=== PATIENT | female | born 1980 | race Caucasian/White ===

== ENCOUNTER 2017-03-24 20:52 | Emergency (ER) | payer OTHER ==
[~2017-03-24] VITALS: Ht 152.4 cm; Wt 68.0 kg
[~2017-03-24 20:52] MED LIST: ADVOCARE SUPPLEMENTS; AMITRIPTYLINE H50 MG PO; AMOXICILLIN500 MG PO; BACTRIM DS 8001 TAB PO; CIPROFLOXACIN500 MG PO; CYCLOBENZAPRINE5 M2 PO; ESCITALOPRAM OX10 MG PO; NAPROSYN500 M1 PO; NORCO 325 MG-51 TAB PO; NUVARING1 ICR VG; ORPHENADRINE C100 MG PO; PERCOCET 5-3251 EACH PO; PROPRANOLOL HYD60 MG PO; TRAMADOL HCL50 MG PO; ZOFRAN 4 MG TABL4 MG PO
[2017-03-24] MEDS ORDERED: AMITRIPTYLINE100 M2 PO (21:19)
[2017-03-24] MEDS ORDERED: PROPRANOLOL HCL80 M2 PO (21:19)
[2017-03-24] MEDS ORDERED: TRAMADOL HCL50 M1 PO (21:20)
[2017-03-24] MEDS ORDERED: DICLOFENAC SODI50 M3 PO (21:20)
--- NOTE | 2017-03-24 21:21 | ED GI/GU/ABDOMINAL COMPLAINT ---
History of Present Illness General Chief Complaint: Nausea, Vomiting, Diarrhea Stated Complaint: +N/V SINCE 2PM Source: patient Exam Limitations: no limitations Allergies Coded Allergies: scallops (Severe, HIVES, THROAT CLOSES 11/08/16) Uncoded Allergies: MONKFISH (UNKNOWN 11/08/16) Triage Note: PT TO ED FOR VOMITING SINCE 1400 TODAY. C/O 10/10 PAIN "ALL OVER" PT ACTIVELY DRY HEAVING AND VOMITING IN TRIAGE. ALSO C/O UPPER ABD PAIN AND DIARRHEA TODAY "DIARRHEA WAS EVERY HALF HOUR." PT UNABLE TO ANSWER FURTHER QUESTIONS IN TRIAGE DUE TO VOMITING AND "TOO WEAK" HR 140 IN TRIAGE. Triage Nurses Notes Reviewed? yes ? N Is pt currently ? No HPI: This patient is a 37-year-old female who presented to the emergency department today for onset of nausea, vomiting, and abdominal pain today. She reported that she was not feeling well yesterday and thought that her fibromyalgia was acting up. She reported that today within the day she started to feel nauseous. She has been throwing up every half an hour with no blood in the vomitus. She has been complaining of 8 out of 10, sharp, nonradiating, constant epigastric pain. She denied any fevers or chills. She denied any diarrhea or constipation. No urinary symptoms. No difficulty breathing or chest pain. (KELIN MCCORMICK,CINDY) Vital Signs & Intake/Output Vital Signs & Intake/Output Vital Signs Date Time Temp Pulse Resp B/P B/P Pulse O2 O2 Flow FiO2 Mean Ox Delivery Rate 03/24 2243 97.9 89 18 123/86 98 Room Air 03/24 2055 98.8 140 24 148/95 97 Room Air ED Intake and Output 03/25 0000 03/24 1200 Intake Total 1000 Output Total Balance 1000 Intake, IV 1000 Patient 150 lb Weight Weight Reported by Patient Measurement Method Reconcile Medications Amitriptyline HCl 100 MG TABLET 1 TAB PO QHS HEADACHES (Reported) Cyclobenzaprine HCl 5 MG TABLET 1 TAB PO QPMP SPASMS (Reported) Diclofenac Sodium 50 MG TABLET.DR 1 TAB PO QPM PAIN (Reported) Dicyclomine Hydrochloride (Bentyl) 10 MG CAPSULE 1 CAP PO TID PRN abdominal spasms Escitalopram Oxalate 10 MG TABLET 1 TAB PO DAILY DEPRESSION (Reported) Ondansetron (Zofran Odt) 4 MG TAB.RAPDIS 1 TAB SL TID PRN nausea and vomiting Propranolol HCl (Propranolol HCl ER) 80 MG CAP.SA.24H 1 CAP PO DAILY BP ( Reported) Tramadol HCl 50 MG TABLET 1 TAB PO BIDP PRN PAIN (Reported) (PETROS SOTO,KATE Robbins) Past History Travel History Traveled to [place] past 21 day No Medical History Any Pertinent Medical History? see below for history Neurological: FIBROMYALGIA EENT: NONE Cardiovascular: hypertension Respiratory: NONE Gastrointestinal: NONE Hepatic: NONE Renal: NONE Musculoskeletal: NONE Psychiatric: depression Endocrine: NONE Other Medical Hx: Viral meningitis Tetanus Vaccine: 04/01/14 Surgical History Surgical History: non-contributory Psychosocial History Who do you live with Family What is your primary language Jordanian Tobacco Use: Never used Family History Hx Contributory? No (CINDY NEVILLE PA-C) Review of Systems Review of Systems Constitutional: Reports: no symptoms. EENTM: Reports: no symptoms. Respiratory: Reports: no symptoms. Cardiovascular: Reports: no symptoms. GI: Reports: see HPI. Genitourinary: Reports: no symptoms. Musculoskeletal: Reports: no symptoms. Skin: Reports: no symptoms. Neurological/Psychological: Reports: no symptoms. All Other Systems: Reviewed and Negative (CINDY NEVILLE PA-C) Physical Exam Physical Exam Gastrointestinal: normal bowel sounds, soft, no organomegaly, TENDERNESS TO PALPATION IN THE EPIGASTRIC REGION WITH NO REBOUND OR GUARDING. nONDISTENDED Comments: Well-developed well-nourished person in mild distress HEENT: Normal EENT exam, head normocephalic, moist mucous membranes Neck: Supple Back: Normal inspection Cardiovascular: Regular rate and rhythm with no murmurs, rubs, or gallops Respiratory: No respiratory distress. Breath sounds clear to auscultation bilaterally Extremity: Normal and equal pulses Neuro: Alert oriented x3, motor sensory normal, cranial nerves II through XII grossly intact. Skin: No appreciable rash on exposed skin, skin is warm and dry. Psych: Mood and affect is normal, memory and judgment is normal. Core Measures ACS in differential dx? No Severe Sepsis Present: No Septic Shock Present: No (CINDY NEVILLE PA-C) Progress Differential Diagnosis: AMI, appendicitis, biliary colic, bowel obstruction, colon cancer, cholecystitis, diverticulitis, ectopic , endometritis, gastritis, hepatitis, hemorrhoids, ischemic bowel, intrauterine , kidney stone, ovarian cyst, ovarian torsion, pancreatitis, PID/cervicitis, PUD/ GERD, perforated viscous, threatened AB, UTI/pyelo, VIRAL SYNDROME Initial ED EKG: none Comments: 03/24/2017 10:00:27 PM: As above the patient's bedside for reevaluation and to update her on her labs. White blood cell count 20.2. Patient reported that Toradol did not help her pain, but Zofran relieved her nausea. The patient is refusing a CT scan at this time. She reported, "I would just like to control my symptoms." 03/24/2017 10:32:04 PM: I was at the patient's bedside for reevaluation. She reported that she is feeling better. The pain is now down to a 4 out of 5. She is not having any nausea. Patient is still refusing CT scan. Stable for discharge home. (KELIN MCCORMICK,CINDY) Plan of Care: Orders Procedure Date/time Status RAPID VIRAL INFLUENZA A 03/24 2145 Complete URINE 03/24 2112 Complete URINALYSIS 03/24 2112 Complete LIPASE 03/24 2112 Complete HUMAN BETA HCG SCREEN 03/24 2112 Complete DIRECT BILIRUBIN 03/24 2112 Complete COMPREHENSIVE METABOLIC PANEL 03/24 2112 Complete CBC WITHOUT DIFFERENTIAL 03/24 2112 Complete AMYLASE 03/24 2112 Complete Laboratory Tests 03/24/172211: Urine Color YEL, Urine Clarity CLEAR, Urine pH 7.5, Ur Specific [place] 1.010, Urine Protein 30 H, Urine Ketones 15 H, Urine Nitrite NEG, Urine Bilirubin NEG , Urine Urobilinogen 1.0, Ur Leukocyte Esterase NEG, Ur Microscopic SEDIMENT EXAMINED, Urine RBC RARE, Urine WBC 1-3 H, Ur Epithelial Cells FEW, Urine Bacteria MANY H, Urine Mucus MOD H, Urine Hemoglobin NEG, Urine Glucose NEG, Urine Test NEGATIVE 03/24/172114: Anion Gap 20 H, Estimated GFR > 60, BUN/Creatinine Ratio 14.0, Glucose 153 H, Calcium 9.9, Total Bilirubin 0.9, Direct Bilirubin 0.2, AST 41 H, ALT 48, Alkaline Phosphatase 112, Total Protein 8.7 H, Albumin 5.0, Globulin 3.7, Albumin/Globulin Ratio 1.4, Amylase 55, Lipase 59, Total Beta HCG NEGATIVE, CBC w Diff NO MAN DIFF REQ, RBC 5.06, MCV 83.9, MCH 28.2, RDW 14.6 H, MPV 8.7, Gran % 92.3 H, Lymphocytes % 3.5 L, Monocytes % 3.0, Eosinophils % 0.9, Basophils % 0.3, Absolute Granulocytes 18.7 H, Absolute Lymphocytes 0.7 L, Absolute Monocytes 0.6, Absolute Eosinophils 0.2, Absolute Basophils 0.1, PUBS MCHC 33.6 Microbiology 03/24 2155 NASOPHARYN: Influenza Virus A & B Rapid Smear - COMP Departure Departure Disposition: HOME OR SELF CARE Condition: Stable Clinical Impression Primary Impression: Viral syndrome Referrals: YULIYA MERCADO (PCP/Family) Additional Instructions: Take medication as prescribed for your symptoms. Please follow-up with your primary care physician and return to the emergency department for any worsening symptoms or concerns. Departure Forms: Customer Survey General Discharge Information Prescriptions: Current Visit Scripts Dicyclomine Hydrochloride (Bentyl) 1 CAP PO TID PRN abdominal spasms #12 CAP Ondansetron (Zofran Odt) 1 TAB SL TID PRN nausea and vomiting #10 TAB (CINDY NEVILLE PA-C) PA/ACQUISITION ASSOCIATE Co-Sign Statement Statement: ED Attending supervision documentation- [] I saw and evaluated the patient. I have also reviewed all the pertinent lab results and diagnostic results. I agree with the findings and the plan of care as documented in the PA's/ACQUISITION ASSOCIATE's documentation. [x] I have reviewed the ED Record and agree with the PA's/ACQUISITION ASSOCIATE's documentation. [] Additions or exceptions (if any) to the PAs/ACQUISITION ASSOCIATE's note and plan are summarized below: [] (PETROS SOTO,KATE Robbins)
[2017-03-24 21:42] LABS: ABSOLUTE BASOPHIL COUNT 0.1 /CUMM (0.0-0.2); ABSOLUTE EOSINOPHIL COUNT 0.2 /CUMM (0.0-0.7); ABSOLUTE GRANULOCYTE CT 18.7 /CUMM (1.4-6.5); ABSOLUTE LYMPH COUNT 0.7 /CUMM (1.2-3.4); ABSOLUTE MONOCYTE COUNT 0.6 /CUMM (0.10-0.60); BASOPHIL % 0.3 % (0.0-2.0); EOSINOPHIL % 0.9 % (0-5); HEMATOCRIT 42.5 % (37-47); MEAN CORPUSCULAR HGB 28.2 PG (27.0-31.0); MEAN CORPUSCULAR HGB CONC 33.6 G/DL (33.0-37.0); MEAN CORPUSCULAR VOLUME 83.9 FL (81.0-99.0); MEAN PLATELET VOLUME 8.7 FL (7.4-10.4); PLATELET COUNT 357 /CUMM (130-400); RBC DISTRIBUTION WIDTH 14.6 % (11.5-14.5); RED BLOOD CELL CT 5.06 /CUMM (4.20-5.40); WHITE BLOOD CELL COUNT 20.2 /CUMM (4.8-10.8)
[2017-03-24 21:43] LABS: GRANULOCYTE % 92.3 % (42.2-75.2)
[2017-03-24] MEDS ORDERED: ZOFRAN ODT4 M1 SL (22:33)
[2017-03-24] MEDS ORDERED: BENTYL10 M1 PO (22:33)
[2017-03-24 22:43] VITALS: BP 123/86
== END 2017-03-24 22:44 ==
LOC: ERH 20:52
PROVIDERS: Physician Assistant
DX: B34.9 Viral infection, unspecified (principal); R10.13 Epigastric pain
CPT/HCPCS: 81001; 81025; 87804; 87804-59; 96374; 96375; J1885; J2405

== ENCOUNTER 2018-01-14 17:51 | Emergency (ER) | payer SELFPAY ==
[~2018-01-14] VITALS: Ht 152.4 cm; Wt 70.8 kg
[~2018-01-14 17:51] MED LIST changes: +AMITRIPTYLINE100 M2 PO; +BENTYL10 M1 PO; +DICLOFENAC SODI50 M3 PO; +IMODIUM A-D2 M1 PO; +LEVSIN-SL0.125 MG SL; +PROPRANOLOL HCL80 M2 PO; +TRAMADOL HCL50 M1 PO; +ZOFRAN ODT4 M1 SL
--- NOTE | 2018-01-14 20:17 | ED HEADACHE COMPLAINT ---
History of Present Illness General Chief Complaint: Headache Stated Complaint: TESTED FLU + X 2DAYS AGO.. HEADACHE Source: patient, family, old records Exam Limitations: no limitations Vital Signs & Intake/Output Vital Signs & Intake/Output Vital Signs Date Time Temp Pulse Resp B/P B/P Pulse O2 O2 Flow FiO2 Mean Ox Delivery Rate 01/143 96 18 145/77 99 Room Air 01/14 1830 97.4 105 18 170/89 100 Room Air Room Air Allergies Coded Allergies: scallops (Severe, HIVES, THROAT CLOSES 11/08/16) Uncoded Allergies: MONKFISH (UNKNOWN 11/08/16) Reconcile Medications Amitriptyline HCl 100 MG TABLET 1 TAB PO QHS HEADACHES (Reported) Cyclobenzaprine HCl 5 MG TABLET 1 TAB PO QPMP SPASMS (Reported) Diclofenac Sodium 50 MG TABLET.DR 1 TAB PO QPM PAIN (Reported) Dicyclomine Hydrochloride (Bentyl) 10 MG CAPSULE 1 CAP PO TID PRN abdominal spasms Escitalopram Oxalate 10 MG TABLET 1 TAB PO DAILY DEPRESSION (Reported) Hyoscyamine Sulfate (Levsin-Sl) 0.125 MG TAB.SUBL 1-2 TAB SL Q4P PRN abdominal cramps Loperamide HCl (Imodium A-D) 2 MG TABLET 0 PO SEE ADMIN CRITERIA PRN diarrhea 1 tab after each loose stool up to 7 per day Ondansetron (Zofran Odt) 4 MG TAB.RAPDIS 1 TAB SL TID PRN nausea Ondansetron (Zofran Odt) 4 MG TAB.RAPDIS 1 TAB SL TID PRN nausea and vomiting Propranolol HCl (Propranolol HCl ER) 80 MG CAP.SA.24H 1 CAP PO DAILY BP ( Reported) Tramadol HCl 50 MG TABLET 1 TAB PO BIDP PRN PAIN (Reported) Triage Note: TRIAGE: 37 Y/O FEMALE PRESENTS C/O 08/29 MIGRAINE HEADACHE X2 DAYS. REPORTS CAME IN ON MONDAY AND THE WAIT WAS 5 HOURS, DID NOT WAIT. [facility], +FLU - HAS BEEN ON TAMIFLU. AFEBRILE IN TRIAGE. Triage Nurses Notes Reviewed? yes : No Patient currently breastfeeds: No HPI: Patient was recently diagnosed with influenza and has been on Tamiflu. Patient states that since yesterday she has had a tightness, burning sensation in the back of her neck that radiates up the back of her head and then radiates around to both both years. The pain and goes to behind both eyes. Positive photophobia. There are no aggravating or mitigating factors. The pain is burning and throbbing in nature. The pain worsens with light as well as movement of her neck. Positive fever, positive anorexia. The pain is 10 out of 10. Patient has been unable to take her cyclobenzaprine secondary to the nausea. Past History Travel History Traveled to [place] past 21 day No Medical History Any Pertinent Medical History? see below for history Neurological: FIBROMYALGIA EENT: NONE Cardiovascular: hypertension Respiratory: NONE Gastrointestinal: NONE Hepatic: NONE Renal: NONE Musculoskeletal: fibromyalgia Psychiatric: depression Endocrine: NONE Other Medical Hx: Viral meningitis Tetanus Vaccine: 04/01/14 Surgical History Surgical History: non-contributory Psychosocial History Who do you live with Family What is your primary language Montserratian Tobacco Use: Never used ETOH Use: occasional use Illicit Drug Use: denies illicit drug use Family History Hx Contributory? No Review of Systems Review of Systems Constitutional: Reports: see HPI, chills. Eyes: Reports: see HPI, photophobia. Ears, Nose, Throat, Mouth: Reports: no symptoms. Respiratory: Reports: no symptoms. Cardiovascular: Reports: no symptoms. Gastrointestinal/Abdominal: Reports: see HPI, nausea. Genitourinary: Reports: no symptoms. Musculoskeletal: Reports: see HPI, neck pain. Skin: Reports: no symptoms. Neurological/Psychological: Reports: see HPI, headache. Hematologic/Endocrine: Reports: no symptoms. Endocrine: Reports: no symptoms. Immunologic/Allergic: Reports: no symptoms. All Other Systems: Reviewed and Negative Physical Exam Physical Exam General Appearance: well developed/nourished, alert, awake, anxious, moderate distress Head: atraumatic, normal appearance Eyes: Bilateral: PERRL, EOMI. Ears, Nose, Throat: normal pharynx, normal ENT inspection, hearing grossly normal Neck: normal inspection, supple, tender lateral Respiratory: normal breath sounds, chest non-tender, no respiratory distress, lungs clear Cardiovascular: regular rate/rhythm, normal peripheral pulses Gastrointestinal: normal bowel sounds, soft, non-tender, no organomegaly Back: normal inspection, normal range of motion, muscle spasm, no vertebral tenderness Extremities: normal inspection, normal capillary refill, normal range of motion, no edema Psychiatric: awake, alert, oriented x 3 Cranial Nerves: normal hearing, normal speech, PERRL Coordination/Gait: normal gait Motor/Sensory: no motor/sensory deficits Skin: intact, normal color, warm/dry Core Measures Sepsis Present: No Sepsis Focused Exam Completed? No Progress Differential Diagnosis: meningitis, tension CROCKETT, viral cephalgia Plan of Care: Current Medications Sig/Myra Start time Last Medication Dose Stop Time Status Admin Sodium Chloride 1,000 ML BOLUS ONE 01/14 2030 AC 01/14 (Normal Saline 0.9%) 01/14 Departure Departure Disposition: HOME OR SELF CARE Condition: Stable Clinical Impression Primary Impression: Tension headache Secondary Impressions: Influenza Referrals: Nasrin Bradford APRN (PCP/Family) Additional Instructions: RETURN IF SYMPTOMS WORSEN OR FOR ANY CONCERNS Departure Forms: Customer Survey General Discharge Information
[2018-01-14 21:23] VITALS: BP 145/77
== END 2018-01-14 23:02 ==
LOC: ERH 17:51
DX: J11.1 Influenza due to unidentified influenza virus with other respiratory manifestations (principal); G44.209 Tension-type headache, unspecified, not intractable
CPT/HCPCS: 96361; 96374; 96375; J0131; J1200; J2405

== ENCOUNTER 2018-02-19 09:44 | Observation (INO) | payer OTHER ==
[~2018-02-19] VITALS: Ht 152.4 cm; Wt 84.4 kg
--- NOTE | 2018-02-19 10:07 | ED CARDIAC/CP/PALPITATIONS ---
History of Present Illness General Chief Complaint: General Adult Stated Complaint: CROCKETT ELAVATED BP SENT FROM [facility] Source: patient Exam Limitations: no limitations Vital Signs & Intake/Output Vital Signs & Intake/Output Vital Signs Date Time Temp Pulse Resp B/P B/P Pulse O2 O2 Flow FiO2 Mean Ox Delivery Rate 02/19 1356 98.0 107 18 132/84 100 Room Air 02/19 1332 98.1 110 18 140/90 99 Room Air 02/19 1331 98.1 110 18 140/90 02/19 1147 98.3 113 17 130/86 99 Room Air 02/19 1117 99 Room Air 02/19 1049 160/100 02/19 1004 97.3 114 18 185/124 99 Room Air Allergies Coded Allergies: scallops (Severe, HIVES, THROAT CLOSES 11/08/16) Uncoded Allergies: MONKFISH (UNKNOWN 11/08/16) Reconcile Medications No Known Home Medications Triage Note: PT PRESENTS TO THE ER SENT IN BY THE URGENT CARE. PT IS C/O CHEST PAIN /10, EX SOB. PT STATES IF SHE WALKS UPSTAIRS THE CP IS 10/10. PT STATES SHE HAD THE FLU END OF DEC AND HAS NOT BEEN BETTER. PT STATES THE LAST 3 WEEKS SHE HAS BEEN GETTING WORSE. URGENT CARE STATES PT BP IS ELEVATED. PT STATES THAT HER RIGHT EYE SHE IS HAVING VISION PROBLEMS. Triage Nurses Notes Reviewed? yes Onset: Gradual Duration: getting worse Quality/Severity: pressure, sharp Location: substernal Radiation: back : No Patient currently breastfeeds: No HPI: Patient is a 38-year-old female with past medical history of migraine headaches and fibromyalgia who states that approximately 2 months ago she had her insurance discontinued where she has been not taking her Lexapro amitriptyline cyclobenzaprine and diclofenac and propranolol Patient states that at the end of December she had influenza and was given Tamiflu which improved her symptoms however patient began working out at a gym approximately 10 days ago and since has been complaining of worsening dyspnea on exertion shortness of breath worsening substernal chest heaviness and pressure with radiation to her back intermittent nausea and dizziness. Patient has a family member who is a nurse and has began evaluating her blood pressure noted to be excessively high. Patient was evaluated today at urgent care facility due to 4-10 chest heaviness and headache complaints with the blood pressure was excessively high with patient was advised to present to the emergency room. Patient denies any illicit drug use smoking tobacco or alcohol use, denies any family history significant for cardiac disease. Denies any fever chills neck pain sore throat DENIES ANY HX OF OCP USE, (Jarek Zimmerman) Past History Travel History Traveled to [place] past 21 day No Medical History Any Pertinent Medical History? see below for history Neurological: FIBROMYALGIA EENT: NONE Cardiovascular: hypertension Respiratory: NONE Gastrointestinal: NONE Hepatic: NONE Renal: NONE Musculoskeletal: fibromyalgia Psychiatric: depression Endocrine: NONE Other Medical Hx: Viral meningitis Tetanus Vaccine: 04/01/14 Surgical History Surgical History: non-contributory Psychosocial History Who do you live with Family What is your primary language Czech Tobacco Use: Never used Family History Hx Contributory? No (Jarek Zimmerman) Review of Systems Review of Systems Constitutional: Reports: see HPI, malaise. EENTM: Reports: see HPI, blurred vision. Respiratory: Reports: see HPI, short of breath. Cardiovascular: Reports: see HPI, chest pain. GI: Reports: see HPI, nausea. Genitourinary: Reports: no symptoms. Musculoskeletal: Reports: no symptoms. Skin: Reports: no symptoms. Neurological/Psychological: Reports: see HPI, headache. Hematologic/Endocrine: Reports: no symptoms. Immunologic/Allergic: Reports: no symptoms. All Other Systems: Reviewed and Negative (Jarek Zimmerman) Physical Exam Physical Exam General Appearance: no apparent distress, alert, comfortable Head: atraumatic Eyes: Bilateral: normal appearance, PERRL. Ears, Nose, Throat: normal pharynx, normal ENT inspection Neck: normal inspection Respiratory: normal breath sounds, chest non-tender, no respiratory distress Cardiovascular: tachycardia Peripheral Pulses: 2+ radial (R) Gastrointestinal: normal bowel sounds, soft, non-tender Extremities: normal inspection, normal capillary refill, normal range of motion Neurologic/Psych: no motor/sensory deficits, awake, alert Skin: intact, normal color Core Measures ACS in differential dx? Yes CVA/TIA Diagnosis No Sepsis Present: No Sepsis Focused Exam Completed? No (Jarek Zimmerman) Progress Differential Diagnosis: AMI, aortic dissection, atrial fibrillation, cholecystitis, CHF/pulm edema, costochondritis, hyperkalemia, hypovolemia, hyperthyroid, hyperventilation, intracranial hemorrhage, musculoskeletal pain, myocarditis, pancreatitis, pericarditis, pneumonia, pneumothorax, PSVT, pulmonary embolism, PUD/GERD, PVCs/PACs, respiratory failure, sepsis, unstable angina, V-fib/V-Tach, WPW syndrome Plan of Care: Orders Procedure Date/time Status Regular Diet 02/19 D Active TROPONIN LEVEL 02/19 1530 Active EKG 02/19 1530 Active OXYGEN SETUP (GEN) 02/19 1315 Active Saline Lock 02/[address] in observation 02/19 1315 Active Vital Signs 02/19 1315 Active Activity/Ambulation 02/19 1315 Active Code Status 02/19 1315 Active Patient Data 02/19 1309 Active Intake & Output 02/19 1115 Active Telemetry/Bead Maker 02/19 1007 Active URINE 02/19 1007 Complete THYROID STIMULATING HORMONE 02/19 1007 Complete TROPONIN LEVEL 02/19 1007 Complete MAGNESIUM 02/19 1007 Complete HUMAN BETA HCG SCREEN 02/19 1007 Complete FREE T4 02/19 1007 Complete D-DIMER 02/19 1007 Complete COMPREHENSIVE METABOLIC PANEL 02/19 1007 Complete CBC WITHOUT DIFFERENTIAL 02/19 1007 Complete EKG 02/19 0959 Active Current Medications Sig/Myra Start time Last Medication Dose Stop Time Status Admin Labetalol HCl 10 MG ONCE ONE 02/19 1100 CAN (Trandate) 02/19 1101 Acetaminophen 1,000 MG ONCE ONE 02/19 1030 CAN (Ofirmev) 02/19 1044 N/A 1 UNIT (No Carrier) Sodium Chloride 1,000 ML BOLUS ONE 02/19 1030 CAN (Normal Saline 0.9%) 02/19 1129 Laboratory Tests 02/19/18 1015: Anion Gap 13, Estimated GFR > 60, BUN/Creatinine Ratio 18.6, Glucose 96, Calcium 9.9, Magnesium 1.7, Total Bilirubin 0.6, AST 38 H, ALT 57 H, Alkaline Phosphatase 106, Troponin I < 0.01, Total Protein 8.2, Albumin 4.5, Globulin 3.7 , Albumin/Globulin Ratio 1.2, TSH 1.970, Free T4 1.15, Total Beta HCG NEGATIVE, D-Dimer High Sensitivty < 200, CBC w Diff NO MAN DIFF REQ, RBC 4.83, MCV 75.5 L , MCH 24.0 L, MCHC 31.7 L, RDW 15.8 H, MPV 8.0, Gran % 61.1, Lymphocytes % 27.6, Monocytes % 7.0, Eosinophils % 3.8, Basophils % 0.5, Absolute Granulocytes 5.1, Absolute Lymphocytes 2.3, Absolute Monocytes 0.6, Absolute Eosinophils 0.3, Absolute Basophils 0, Urine Test NEGATIVE Differential diagnosis included meningitis intracranial hemorrhage migraine labyrinthitis Patient initially was given nitroglycerin and aspirin due to the presentation of substernal chest pressure, initial EKG was unremarkable concerns of ST elevation blood pressure was noted to be elevated and was nitroglycerin was administered with no relief of symptoms Another dose of nitroglycerin will be administered blood pressure will be rechecked and possibly labetalol will be administered if no improvement. After nitroglycerin was administered patient did have improvement of chest pain in which she describes the sharp pain is gone however is still having chest pressure symptoms and blood pressure has improved, headache still exist patient was given Imitrex and Fioricet. Discuss ongoing chest pain with Dr. Choudhary who advised patient to be administered IV labetalol and will consult and is aware Discussed patient with case management who advised patient to be placed in telemetry observation discussed plan of observation with patient and was aware and agrees Diagnostic Imaging: Viewed by Me: Radiology Read. Radiology Impression: no acute abnormality, no fracture CXR Impression: no acute abnormality Initial ED EK BPM,LVH Comments: PATIENT: GENEVIEVE ALEXIS PRESENT AGE: 38 PATIENT ACCOUNT NO: [id number] : 79 LOCATION: [facility] ORDERING PHYSICIAN: Jarek MAI SERVICE DATE: 02/19/18 EXAM TYPE: RAD - XRY-PORTABLE CHEST XRAY EXAMINATION: XR PORTABLE CHEST CLINICAL INFORMATION: Chest pain COMPARISON: CT chest dated 10/30/2014 TECHNIQUE: Portable frontal view of the chest was obtained. FINDINGS: No significant abnormality is noted involving the heart, lungs, mediastinum, bony thorax or soft tissues. IMPRESSION: No acute pulmonary disease. DICTATED BY: Michael Oneill MD DATE/TIME DICTATED:02/19/181152 SALES STRATEGY MANAGER:TATIANA (Albert MAI,Jarek) Departure Departure Disposition: STILL A PATIENT Condition: Stable Clinical Impression Primary Impression: Hypertensive urgency Secondary Impressions: Chest pain, Migraine Referrals: Nasrin Bradford APRN (PCP/Family) Departure Forms: Customer Survey General Discharge Information Prescriptions: Current Visit Scripts No Known Home Medications Observation Note Spoke With: Chester SOTO,Christie Physician Advisor Notified: SHRADDHA BENTON DO Place Patient In: Non-ED OBS Care Area Rationale for Observation: My rational for observation is as follows [patient requires observation placement for ongoing chest pain hypertensive urgency and headaches, patient requires cardiology consultation antihypertensive medication nitroglycerin repeat labs repeat EKG and troponin]. (Jarek Zimmerman) PA/BABY COUNSELOR Co-Sign Statement Statement: ED Attending supervision documentation- I saw and evaluated the patient. I have also reviewed all the pertinent lab results and diagnostic results. I agree with the findings and the plan of care as documented in the PA's/BABY COUNSELOR's documentation. CP with exertion, HTN [] I have reviewed the ED Record and agree with the PA's/BABY COUNSELOR's documentation. [] Additions or exceptions (if any) to the PAs/BABY COUNSELOR's note and plan are summarized below: [] (Moise SOTO,[place]) Critical Care Note Critical Care Note Critical Care Time: 30-74 min (Jarek Zimmerman)
[2018-02-19 10:34] LABS: ABSOLUTE BASOPHIL COUNT 0 /CUMM (0.0-0.2); ABSOLUTE EOSINOPHIL COUNT 0.3 /CUMM (0.0-0.7); ABSOLUTE GRANULOCYTE CT 5.1 /CUMM (1.4-6.5); ABSOLUTE LYMPH COUNT 2.3 /CUMM (1.2-3.4); ABSOLUTE MONOCYTE COUNT 0.6 /CUMM (0.10-0.60); BASOPHIL % 0.5 % (0.0-2.0); EOSINOPHIL % 3.8 % (0-5); GRANULOCYTE % 61.1 % (42.2-75.2); HEMATOCRIT 36.5 % (37-47); MEAN CORPUSCULAR HGB CONC 31.7 G/DL (33.0-37.0); MEAN CORPUSCULAR VOLUME 75.5 FL (81.0-99.0); PLATELET COUNT 419 /CUMM (130-400); RBC DISTRIBUTION WIDTH 15.8 % (11.5-14.5); RED BLOOD CELL CT 4.83 /CUMM (4.20-5.40); WHITE BLOOD CELL COUNT 8.4 /CUMM (4.8-10.8)
--- NOTE | 2018-02-19 11:57 | RADIOLOGY REPORT ---
EXAMINATION: XR PORTABLE CHEST CLINICAL INFORMATION: Chest pain COMPARISON: CT chest dated 10/30/2014 TECHNIQUE: Portable frontal view of the chest was obtained. FINDINGS: No significant abnormality is noted involving the heart, lungs, mediastinum, bony thorax or soft tissues. IMPRESSION: No acute pulmonary disease.
--- NOTE | 2018-02-19 13:39 | History & Physical ---
[place] 02/19/18 1325: General Information and HPI MD Statement: I have seen and personally examined GENEVIEVE ALEXIS and documented this H&P. The patient is a 38 year old F who presented with a patient stated chief complaint of chest pain and elevated blood pressure []. Source of Information: patient, old records Exam Limitations: no limitations History of Present Illness: 38 YO F non smoker with PMH of HTN, fibromyalgia, migraine headache and depression was sent to ED from urgent care clinic for evaluation of chest pain and elevated blood pressure. Patient reported that she was in her usual state of health 2-3 weeks back when he started noticed having central chest pain, on exertion, 10/10, radiating to back, associated with palpitation, sweating, nausea and relieved with rest. Patient reported that she is taking Tylenol or ibuprofen [id number] for this pain. Patient also reported that she had flulike symptoms one month back, was treated with tamiflu and since then she is having pressure-like symptoms in her chest but it's not related to breathing. She reported that sometimes she has difficulty breathing especially on exertion. She reported that she is not able to take one flight of stairs without exertion. Patient also reported having blurry vision but it's going on for a long time. She also reported having headaches intermittently and at school be by taking pain medications. Patient denied shortness breath at rest, trauma to chest, sick contacts, vomiting, hematemesis, hemoptysis, diarrhea, constipation, abdominal pain, loss of consciousness, numbness, tingling, weakness in any part of her body and dysuria. Patient is seen her Primary care physician regularly and she is also seeing Dr. Garcia for fibromyalgia. Patient reported she is not able to take her medications including propranolol, flexril and NSAIDs for last couple of weeks due to her insurance problem. Patient also reported that due to blurry vision she is not able to drive. Last time patient was admitted in [facility] in 2010 with chief complaint of nausea vomiting and headache with photophobia and neck stiffness and she was treated for aseptic/viral meningitis. ED course: Vitals: Temperature 97.3, pulse 114, respiratory rate 18, blood pressure 185/124 , oxygen saturation 99% on room air. Labs: WBC count 8.4, hemoglobin 11.6, hematocrit 36.5,. patelet count 419, sodium 141, potassium 4.1, BUN 13, creatinine 0.7, BUN/creatinine ratio 15.6, glucose 96, calcium 9.9, magnesium 1.7, AST 38, ALT 57, alkaline phosphatase 106 , troponin less than 0.01, TSH 1.970, free T4 1 0.15, beta-hCG negative, d-dimer less than 200 Patient received nitroglycerin and aspirin in ED the patient also received one push of 10 mg labetalol. Allergies/Medications Allergies: Coded Allergies: scallops (Severe, HIVES, THROAT CLOSES 11/08/16) Uncoded Allergies: MONKFISH (UNKNOWN 11/08/16) Home Med list No Known Home Medications Past History Travel History Traveled to [place] past 21 day No Medical History Neurological: FIBROMYALGIA EENT: NONE Cardiovascular: hypertension Respiratory: NONE Gastrointestinal: NONE Hepatic: NONE Renal: NONE Musculoskeletal: fibromyalgia Psychiatric: depression Endocrine: NONE Other Medical Hx: Viral meningitis Tetanus Vaccine: 04/01/14 Surgical History Surgical History: non-contributory Review of Systems Review of Systems Constitutional: Reports: no symptoms. EENTM: Reports: no symptoms. Cardiovascular: Reports: chest pain, palpitations. Respiratory: Reports: short of breath. GI: Reports: no symptoms. Genitourinary: Reports: no symptoms. Musculoskeletal: Reports: see HPI. Skin: Reports: no symptoms. Neurological/Psychological: Reports: no symptoms. Exam & Diagnostic Data Last 24 Hrs of Vital Signs/I&O Vital Signs Date Time Temp Pulse Resp B/P B/P Pulse O2 O2 Flow FiO2 Mean Ox Delivery Rate 02/19 1503 98.0 98 18 144/90 99 Room Air 02/19 1356 98.0 107 18 132/84 100 Room Air 02/19 1332 98.1 110 18 140/90 99 Room Air 02/19 1331 98.1 110 18 140/90 02/19 1147 98.3 113 17 130/86 99 Room Air 02/19 1117 99 Room Air 02/19 1049 160/100 02/19 1004 97.3 114 18 185/124 99 Room Air Intake & Output 02/19 1600 /02 0800 02/19 0000 Intake Total 270 Output Total 1 Balance 269 Intake, IV 150 Intake, Oral 120 Output, Urine 1 Patient 165 lb Weight Weight Reported by Patient Measurement Method Physical Exam General Appearance Alert, Oriented X3, Cooperative, No Acute Distress Skin No Rashes Skin Temp/Moisture Exam: Warm/Dry Sepsis Skin Exam (color): Normal for Ethnicity HEENT Atraumatic, PERRLA, EOMI Neck Supple Cardiovascular Normal S1, Normal S2 Lungs Clear to Auscultation Abdomen Soft, No Tenderness Neurological Normal Speech, Strength at 5/5 X4 Ext, Normal Tone, Sensation Intact Extremities No Edema Last 24 Hrs of Labs/Danny: Laboratory Tests 02/19/18 1945: Urine Color Pending, Urine Clarity Pending, Urine pH Pending, Ur Specific [place] Pending, Urine Protein Pending, Urine Ketones Pending, Urine Nitrite Pending, Urine Bilirubin Pending, Urine Urobilinogen Pending, Ur Leukocyte Esterase Pending, Ur Microscopic Pending, Urine Hemoglobin Pending, Urine Glucose Pending 02/19/18 1750: Troponin I < 0.01 02/19/18 1015: Anion Gap 13, Estimated GFR > 60, BUN/Creatinine Ratio 18.6, Glucose 96, Calcium 9.9, Magnesium 1.7, Total Bilirubin 0.6, AST 38 H, ALT 57 H, Alkaline Phosphatase 106, Troponin I < 0.01, Total Protein 8.2, Albumin 4.5, Globulin 3.7 , Albumin/Globulin Ratio 1.2, TSH 1.970, Free T4 1.15, Total Beta HCG NEGATIVE, D-Dimer High Sensitivty < 200, CBC w Diff NO MAN DIFF REQ, RBC 4.83, MCV 75.5 L , MCH 24.0 L, MCHC 31.7 L, RDW 15.8 H, MPV 8.0, Gran % 61.1, Lymphocytes % 27.6, Monocytes % 7.0, Eosinophils % 3.8, Basophils % 0.5, Absolute Granulocytes 5.1, Absolute Lymphocytes 2.3, Absolute Monocytes 0.6, Absolute Eosinophils 0.3, Absolute Basophils 0, Urine Test NEGATIVE Assessment/Plan Assessment: 38 YO F non smoker with PMH of HTN, fibromyalgia, migraine headache and depression was sent to ED from urgent care clinic for evaluation of chest pain and elevated blood pressure. We'll keep the patient under observation to rule out any ischemic cardiac injury. Chest pain: -Considering her symptoms and looks atypical chest pain. We will keep the patient on telemetry floor and do serial EKG and troponins to rule out any ischemic cardiac injury. -Cardiology consult -Echocardiogram in a.m. Hypertensive urgency: -Considering patient recently stopped taking propranolol abruptly that can cause her tachycardia and hypertension. -We will start amlodipine -Renal artery ultrasound to rule out renal artery fibromuscular dysplasia. -Urine toxicology -We will check UA History of fibromyalgia; -continue her home medication History of migraine: -Continue home medications DVT prophylaxis: Mechanical and subcutaneous Lovenox CODE STATUS; Full code As Ranked By This Provider Problem List: 1. Hypertensive urgency 2. Chest pain Core Measures/Misc (08/06) Acute Coronary Syndrome ACS Diagnosis: No Congestive Heart Failure Congestive Heart Failure Diagnosis No Cerebrovascular Accident CVA/TIA Diagnosis: No VTE (View Protocol) VTE Risk Factors Obesity No Mechanical VTE Prophylaxis d/t N/A MechProphylax Ordered No VTE Pharm Prophylaxis d/t NA PharmProphylax ordered Sepsis (View protocol) Sepsis Present: No Scott SOTO,[facility] 02/19/18 1558: General Information and HPI MD Statement: I have seen and personally examined GENEVIEVE ALEXIS and documented this H&P. The patient is a 38 year old F who presented with a patient stated chief complaint of []. Resident Review Statement Resident Statement: examined this patient, discussed with clinical nursing intern, agreed with clinical nursing intern, discussed with family Other Findings: Mr. Alexis is a 38-year-old female with past medical history significant for migraine headache, fibromyalgia who presented to ED with chief complaint of shortness of breath, chest pressure and tightness on exertion radiate to the back associated with nausea and headache 10 days. Patient reported blurry vision and dizziness for the last couple of days that interfered with driving longer rides. Patient denied any history of falls, abdominal pain, vomiting, diarrhea or constipation, weight loss, night sweats. Patient denied any previous history of hypertension however blood pressure has been systolic 140 and diastolic 90 almost every time she goes to primary care physician, last visit last year. Never been on medication. Patient had her measure her pressure yesterday and was running in 180 and 190, they asked her to visit an urgent care otherwise they will call an ambulance. Patient went to urgent care this morning and was found to have blood pressure of 180/100 and was advised to come to ED for evaluation. Problem list #Hypertensive urgency with evidence of LVH in a EKG #Migraine headache #Atypical chest pain Plan Observe in telemetry floor Vitals every shift Trops EKG 3 Funduscopic examination at bedside negative for papilledema CT head to rule out any intracranial hemorrhage in setting of headache, blurry vision Echocardiogram given LVH in echocardiogram and to assess also the our data UA Urine toxicology We will start amlodipine 10 mg fot BP control CCB would help with her migraine headache as well Renal artery Doppler scan to rule out renal artery stenosis We will obtain blood pressure measurement in both arms We will work up for fibromuscular dysplasia given new onset of hypertension in young female with headache. Patient denied any family history of malignant hypertension or aortic aneurysm. Bib Lee 02/19/182051: Attending MD Review Statement Attending Statement Attending MD Statement: examined this patient, discuss w/resident/PA/PRODUCT EXAMINER, agreed w/resident/PA/PRODUCT EXAMINER, reviewed EMR data (avail), discussed with nursing Attending Assessment/Plan: 38 yr old f with pmh of fibromyalgia and migraine headaches admitted with headache and chest pain of 10 days duration. Pt does not have insurance for the last few months and has previous h/o high BP. Pt went to urgent care today for this chest pain which she described as central, pressure like, with some nausea, diaphoresis and palpitations which was releived with rest. Pt in urgent care was found to have high bp of 190/130. Pt was told to come tot ER. Pt was given iv labetalol and NTG in er and her bp came down to 140/90. Pt on EKG showed LVH and first trop was negative. Pt will be observed on telemetry and will do serial trops and will repeat ekg in am. Will get cardiology consult. will start on CCB for bp and may help her with her migraine headaches. Pt says previously she was on propanolol but she ran out of insurance so was not taking it. Will get HEad CT and will do renal doppler , echo and will get UA /UTOX. d/w pt the care plan.
[2018-02-19 15:03] VITALS: BP 144/90
[2018-02-19 16:00] VITALS: BP 150/88
--- NOTE | 2018-02-19 17:35 | CT SCAN REPORT ---
EXAMINATION: CT HEAD WITHOUT CONTRAST CLINICAL INFORMATION: Headache. Hypertensive emergency. COMPARISON: 04/01/2014. TECHNIQUE: Contiguous axial images of the brain were obtained without IV contrast. DLP: 600 mGy-cm. FINDINGS: There are no pathologic extra-axial fluid collections. The lateral, third, fourth ventricles are nondilated and concordant with the appearance of the sulci. There is no evidence for acute intraparenchymal hemorrhage or infarct. There is neither mass nor mass effect. There is no shift of midline structures. The paranasal sinuses and mastoid air cells are clear. There are no osseous lesions. IMPRESSION: No evidence for acute intracranial injury.
[2018-02-19 18:27] VITALS: BP 160/102
--- NOTE | 2018-02-19 21:46 | Cons- Cardiology ---
General Information and HPI Consulting Request Date of Consult: 02/19/18 Requested By: Phillip Bailon MD History of Present Illness: This patient is a 38 year old female with history of hypertension and fibromyalgia. Over the past two to three weeks she has had viral symptoms suggestive of the "flu" and has taken Tamiflu. More recently this patient has experienced an unremitting frontal headache. She also has a sharp discomfort between her breasts that radiates to her back and both shoulders. The discomfort is exacerbated by exertion and is severe with activity. There is no respiratory component to this discomfort. She denies any associated nausea, vomiting or diaphoresis. The patient is active at her baseline and likes to play sports. Lately, she has been very short of breath without orthopnea. She also reports lightheadedness and rapid palpitations. Upon presentation, this patient was noted to be very hypertensive. She does tend to take NSAIDS, Flexeril and Exedrin migraine. The last time this patient was admitted in [facility] in 2010 she had a chief complaint of nausea/vomiting and headache with photophobia and neck stiffness and she was treated for aseptic/viral meningitis. Allergies/Medications Allergies: Coded Allergies: scallops (Severe, HIVES, THROAT CLOSES 11/08/16) Uncoded Allergies: MONKFISH (UNKNOWN 11/08/16) Home Med List: No Known Home Medications Review of Systems Review of Systems: blurred vision Past History Travel History Traveled to [place] past 21 day No Medical History Blood Transfusion Hx: No Neurological: FIBROMYALGIA EENT: NONE Cardiovascular: hypertension Respiratory: NONE Gastrointestinal: NONE Hepatic: NONE Renal: NONE Musculoskeletal: fibromyalgia Psychiatric: depression Endocrine: NONE Other Medical Hx: Viral meningitis Surgical History Surgical History: Family History Family History Reviewed? Mother: COPD Father: alcoholism Psychosocial History Where Do You Live? Home Smoking Status: Never Smoked Exam & Diagnostic Data Vital Signs and I&O Vital Signs Date Time Temp Pulse Resp B/P B/P Pulse O2 O2 Flow FiO2 Mean Ox Delivery Rate 02/19 1827 88 160/102 02/19 1600 98.0 90 18 150/88 99 Room Air 02/19 1503 98.0 98 18 144/90 99 Room Air 02/19 1356 98.0 107 18 132/84 100 Room Air 02/19 1332 98.1 110 18 140/90 99 Room Air 04/02 1331 98.1 110 18 140/90 02/19 1147 98.3 113 17 130/86 99 Room Air 02/19 1117 99 Room Air 02/19 1049 160/100 02/19 1004 97.3 114 18 185/124 99 Room Air Intake & Output 02/19 1600 02/19 0800 02/19 0000 02/18 1600 02/18 0800 02/18 0000 Intake Total 270 Output Total 1 Balance 269 Intake, IV 150 Intake, Oral 120 Output, Urine 1 Patient 160 lb Weight Weight Reported by Patient Measurement Method Physical Exam: General: WD/WN female in NAD; alert and oriented x 3 HEENT: NC/AT, PERRL, EOMI neck: no JVD, no carotid bruit Heart: tachycardic and regular, no murmur Lungs: clear bilaterally Abdomen: soft, NT, +ve bowel sounds Extremities: no edema Assessment/Plan Assessment/Plan * This patient is tachycardic and hypertensive. She recently stopped taking her propranolol along with other medications. Abruptly stopping a beta chace can cause reflex tachycardia and hypertension. In addition, the NSAIDS that she is taking are likely also contributing to her hypertension. Finally, consideration can be given to renal artery fibromuscular dysplasia. * Begin Labetolol 200mg BID after a 10mg IV bolus. Begin HCTZ 12.5mg daily. Stop NSAIDs. Begin a low sodium diet and obtain an echocardiogram. I would also recommend an ultrasound of the renal arteries to assess for renal artery stenosis. * In regard to the patient's chest discomfort and shortness of breath, I suspect these symptoms are related to her severe hypertensive excursions. She will likely improve when her blood pressure is better controlled. Her headaches and blurred vision are also likely related to severe hypertensive excursions. We will consider a stress test. Consult Acknowledgment - Thank you for your consult request.
[2018-02-19 22:16] VITALS: BP 138/80
[2018-02-20 06:50] VITALS: BP 118/80
--- NOTE | 2018-02-20 07:03 | PN-Observation ---
[place]inder[place] 02/20/18 0703: Observation Note Observation Note _ I have personally examined GENEVIEVE ALEXIS. her disposition is uncertain at this time. Before a determination can be made, she requires continued observation for the following reasons chest pain []. Assessment/Plan Medical Assessment: 38 YO F non smoker with PMH of HTN, fibromyalgia, migraine headache and depression was sent to ED from urgent care clinic for evaluation of chest pain and elevated blood pressure. We'll keep the patient under observation to rule out any ischemic cardiac injury. Problem List: 1. Chest pain 2. Hypertensive urgency Plan: Chest pain: -Considering her symptoms and looks atypical chest pain. We will keep the patient on telemetry floor and do serial EKG and troponins to rule out any ischemic cardiac injury. -Cardiology consult -Echocardiogram. Hypertensive urgency: -Considering patient recently stopped taking propranolol abruptly that can cause her tachycardia and hypertension. -Continue amlodipine and labetalol. -We will continue hydrochlorothiazide -Renal artery ultrasound to rule out renal artery fibromuscular dysplasia. Anxiety; -Alprazolam when necessary History of fibromyalgia; -continue her home medication History of migraine: -Continue Fioricet. DVT prophylaxis: Mechanical and subcutaneous Lovenox CODE STATUS; Full code Subjective Follow-up For: Chest pain Hypertensive urgency Tele-Events Since Last Visit: Patient remained in sinus rhythm with heart rate between [id number] Subjective: No overnight events. Patient remained afebrile. She is is seen and examined this morning. Patient was feeling anxious and she was complaining of headache this morning. Patient denied any chest pain, short of breath, nausea, vomiting or chills, fever, abdominal pain dysuria. Review of Systems Constitutional: Reports: no symptoms. EENTM: Reports: no symptoms. Cardiovascular: Reports: no symptoms. Respiratory: Reports: no symptoms. Gastrointestinal: Reports: no symptoms. Genitourinary: Reports: no symptoms. Musculoskeletal: Reports: no symptoms. Neurological/Psychological: Reports: anxiety. Objective Last 24 Hrs of Vital Signs/I&O Vital Signs Date Time Temp Pulse Resp B/P B/P Pulse O2 O2 Flow FiO2 Mean Ox Delivery Rate 02/20 1042 83 122/70 02/20 1042 83 122/70 02/20 1039 83 122/70 02/20 0800 Room Air 02/20 0650 98.2 82 20 118/80 98 Room Air 04/02 2216 97.7 100 20 138/80 99 04/02 1827 88 160/102 04/02 1600 98.0 90 18 150/88 99 Room Air 04/02 1503 98.0 98 18 144/90 99 Room Air 04/02 1356 98.0 107 18 132/84 100 Room Air 04/02 1332 98.1 110 18 140/90 99 Room Air 04/02 1331 98.1 110 18 140/90 04/ 1147 98.3 113 17 130/86 99 Room Air 04/ 1117 99 Room Air Intake & Output 02/20 1600 / 0800 02/20 0000 Intake Total 130 Output Total Balance 130 Intake, Oral 130 Patient 185 lb Weight Physical Exam General Appearance: Alert, Oriented X3, Cooperative Skin: No Rashes Skin Temp/Moisture Exam: Warm/Dry Sepsis Skin Exam (color): Normal for Ethnicity HEENT: Atraumatic, PERRLA, EOMI Neck: Supple Cardiovascular: Normal S1, Normal S2 Lungs: Clear to Auscultation Abdomen: Soft, No Tenderness Neurological: Normal Speech, Strength at 5/5 X4 Ext, Normal Tone, Sensation Intact Extremities: No Edema Phillip Bailon MD 02/20/18 1107: Observation Note Observation Note _ I have personally examined GENEVIEVE ALEXIS. her disposition is uncertain at this time. Before a determination can be made, she requires continued observation for the following reasons []. Objective Last 24 Hrs of Vital Signs/I&O Vital Signs Date Time Temp Pulse Resp B/P B/P Pulse O2 O2 Flow FiO2 Mean Ox Delivery Rate 02/20 1042 83 122/70 / 1042 83 122/70 02/20 1039 83 122/70 /03 0800 Room Air /03 0650 98.2 82 20 118/80 98 Room Air 04/ 2216 97.7 100 20 138/80 99 04/02 1827 88 160/102 04/02 1600 98.0 90 18 150/88 99 Room Air 04/02 1503 98.0 98 18 144/90 99 Room Air 04/02 1356 98.0 107 18 132/84 100 Room Air 04/02 1332 98.1 110 18 140/90 99 Room Air 04/ 1331 98.1 110 18 140/90 04/ 1147 98.3 113 17 130/86 99 Room Air 04/02 1117 99 Room Air Intake & Output 02/20 1600 04/ 0800 04/ 0000 Intake Total 130 Output Total Balance 130 Intake, Oral 130 Patient 83.943 kg Weight Addendum Addendum 38F PMH HTN, fibromyalgia, migraine headache and depression admitted with intractable headache and left sided chest pain, found to be in hypertensive urgency 185/124, improved overnight to 122/70 after IV Labetalol. Patient had stopped all her home medications including Propranolol due to insurance issues. She is under stress with the one year anniversary of her father's . She does not have exertional chest pain or dyspnea. EKG is NSR, troponin negative. 1. Hypertensive urgency 2. Chest pain at rest 3. Migraine Plan - Observation in telemetry - Follow cardiology recommendations for possible stress test - Continue BP control - May give Xanax single dose for anxiety - Serial EKG and troponin - Restart chronic medications - Discontinue NSAIDs - DVT PPx - Anticipated discharge today or tomorrow morning pending cardiology input and continued BP control
[2018-02-20 08:27] LABS: ABSOLUTE BASOPHIL COUNT 0.1 /CUMM (0.0-0.2); ABSOLUTE EOSINOPHIL COUNT 0.3 /CUMM (0.0-0.7); ABSOLUTE GRANULOCYTE CT 4.9 /CUMM (1.4-6.5); ABSOLUTE LYMPH COUNT 2.4 /CUMM (1.2-3.4); ABSOLUTE MONOCYTE COUNT 0.5 /CUMM (0.10-0.60); BASOPHIL % 0.6 % (0.0-2.0); EOSINOPHIL % 3.9 % (0-5); GRANULOCYTE % 59.8 % (42.2-75.2); HEMATOCRIT 31.6 % (37-47); MEAN CORPUSCULAR HGB 24.7 PG (27.0-31.0); MEAN CORPUSCULAR VOLUME 75.1 FL (81.0-99.0); MEAN PLATELET VOLUME 8.5 FL (7.4-10.4); PLATELET COUNT 317 /CUMM (130-400); RBC DISTRIBUTION WIDTH 15.2 % (11.5-14.5); RED BLOOD CELL CT 4.22 /CUMM (4.20-5.40); WHITE BLOOD CELL COUNT 8.2 /CUMM (4.8-10.8)
[2018-02-20 10:39] VITALS: BP 122/70
--- NOTE | 2018-02-20 13:47 | ULTRASOUND REPORT ---
EXAMINATION: RENAL ARTERY DOPPLER ULTRASOUND CLINICAL INFORMATION: Headache, hypertensive urgency, rule out FMD. COMPARISON: CT abdomen 11/17/2011 TECHNIQUE: Renal and bladder ultrasound. Doppler ultrasound (spectral analysis and color Doppler) of the renal arteries and aorta were performed. FINDINGS: The right kidney measures 10.7 cm x 3.7 cm x 4.1 cm in sagittal, AP and transverse dimensions. The left kidney measures 10.2 cm x 5.0 cm x 4.5 cm in sagittal, AP and transverse dimensions. The kidneys show no masses, calculi or hydronephrosis. The corticomedullary differentiation is normal. The bladder is well distended without focal bladder wall thickening. RENAL ARTERY VELOCITIES: Right: Proximally: 166 cm/s. Mid: 124 cm/s. Distal: 124 cm/s. Left: Proximally: 167 cm/s. Mid: 105 cm/s. Distally: 76 cm/s. The aortic velocity is 82 cm/s. The renal aortic ratio is 2.0 on the right and 2.0 on the left. These values are within normal limits. IMPRESSION: 1. The kidneys are normal in appearance. 2. There is no evidence of renal artery stenosis.
[2018-02-20] MEDS ORDERED: NORVASC10 M1 PO (15:39)
[2018-02-20] MEDS ORDERED: LABETALOL HCL200 M1 PO (15:39)
[2018-02-20] MEDS ORDERED: HYDROCHLOROTH12.5 M3 PO (15:39)
[2018-02-20 15:44] VITALS: BP 124/80
--- NOTE | 2018-02-20 15:45 | Patient Discharge Instructions ---
Discharge Instructions General Discharge Information You were seen/treated for: Hypertensive urgency Chest pain Watch for these problems: Chest pain, short of breath, palpitation, nausea, vomiting, altered mental status. If you experience any of these symptoms come to ED or call to her primary care physician. Special Instructions: -Follow-up primary care physician in one week -Keep a record of your BP before you go to pcp so that he can adjust your medication for HTN. -Follow-up cardiology in 1 week and discuss about cardiac stress test for further evaluation of chest pain. -No NSAIDs as it can contribute to hypertension. Diet Recommended Diet: Regular Activity Activity Self Limited: Yes Acute Coronary Syndrome Inclusion Criteria At DC or during hospital stay patient has or had the following: ACS DIAGNOSIS No Discharge Core Measures Meds if any: Prescribed or Continued at Discharge Meds if any: NOT Prescribed or Continued at Discharge Congestive Heart Failure Inclusion Criteria At DC or during hospital stay patient has or had the following: CHF DIAGNOSIS No Discharge Core Measures Meds if any: Prescribed or Continued at Discharge Meds if any: NOT Prescribed or Continued at Discharge Cerebrovascular accident Inclusion Criteria At DC or during hospital stay patient has or had the following: CVA/TIA Diagnosis No Discharge Core Measures Meds if any: Prescribed or Continued at Discharge Meds if any: NOT Prescribed or Continued at Discharge Venous thromboembolism Inclusion Criteria VTE Diagnosis No VTE Type NONE VTE Confirmed by (Test) NONE Discharge Core Measures - Per Current guidelines, there needs to be overlap - treatment for the first 5 days of Warfarin therapy. - If discharged on Warfarin prior to 5 days of - overlap therapy, the patient will need to be - assessed for post discharge needs including - *Post discharge parental anticoagulation - *Warfarin and/or parental anticoagulation education - *Follow up date to check INR post discharge At least 5 days overlap therapy as Inpatient No Meds if any: Prescribed or Continued at Discharge Note: Overlap Therapy is Warfarin and Anticoagulant Meds if any: NOT Prescribed or Continued at Discharge
[2018-02-20] MEDS ORDERED: CYCLOBENZAPRINE10 M1 PO (16:23)
[2018-02-20] MEDS ORDERED: CYCLOBENZAPRINE5 M2 PO (16:25)
[2018-02-20] MEDS ORDERED: ESCITALOPRAM OX20 MG PO (16:26)
[2018-02-20] MEDS ORDERED: AMITRIPTYLINE100 M2 PO (16:32)
--- NOTE | 2018-02-20 17:09 | PN- Cardiology ---
Subjective Subjective: * Patient feels much improved. Her blurred vision has abated. She continues to report a headache although it is now in the back of her head. No chest pain, lightheadedness or palpitations. * Improved blood pressure. * renal ultrasound is not suggestive of stenosis Objective Vital Signs and I&Os Vital Signs Date Time Temp Pulse Resp B/P B/P Pulse O2 O2 Flow FiO2 Mean Ox Delivery Rate 02/20 1544 97.9 96 20 124/80 100 04/03 1042 83 122/70 04/ 1042 83 122/70 04/ 1039 83 122/70 / 0800 Room Air / 0650 98.2 82 20 118/80 98 Room Air 02/19 2216 97.7 100 20 138/80 99 04/02 1827 88 160/102 Intake & Output 02/20 1600 04/ 0800 04/ 0000 / 1600 02/19 0800 02/19 0000 Intake Total 600 130 270 Output Total 1 Balance 600 130 269 Intake, IV 150 Intake, Oral 600 130 120 Output, Urine 1 Patient 185 lb 185 lb Weight Weight Reported by Patient Measurement Method Physical Exam: General: WD/WN female in NAD; alert and oriented x 3 HEENT: NC/AT, PERRL, EOMI neck: no JVD, no carotid bruit Heart: RRR, no murmur Lungs: clear bilaterally Abdomen: soft, NT, +ve bowel sounds, no renal bruit Extremities: no edema Assessment/Plan Assessment/Plan * This patient was tachycardic and hypertensive. These findings have resolved on her current drug regimen which should be continued without change. It should be noted that abrupt cessation of beta blockers can cause reflex tachycardia. She also needs to avoid overuse of NSAIDs which can also cause hypertension. * In regard to the patient's chest discomfort and shortness of breath, I suspect these symptoms are related to her severe hypertensive excursions. She appears improved with better control of her blood pressure. Continue telemetry? Yes
[2018-02-20 23:00] VITALS: BP 138/88
[2018-02-21 06:00] VITALS: BP 122/82
--- NOTE | 2018-02-21 07:34 | ECHOCARDIOGRAM REPORT ---
GENEVIEVE ALEXIS Age: 38 : 1980 Gender: F Exam Date: 02/20/2018 10:01 Exam Location: [address] Ht (in): 60 Wt (lb): 165 BSA: 1.81 BP: 118 / 80 Ordering Physician: Garcia Chavez MD Referring Physician: Garcia Chavez MD Technologist: Celestine Ashraf [facility] Room Number: 182-1 Indications: HYPERTENSION Rhythm: Sinus Technical Quality: good FINDINGS Left Ventricle Normal left ventricular size, wall thickness and systolic function with no obvious regional wall motion abnormalities. Normal left ventricular diastolic filling pattern for age. The ejection fraction is visually estimated at 70%. Right Ventricle The right ventricle is normal in size and function. Right Atrium The right atrium is normal in size. Left Atrium The left atrium is normal in size. The interatrial septum is intact. Mitral Valve The mitral valve is normal in structure and function. There is trace mitral regurgitation. Aortic Valve Structurally normal aortic valve without significant sclerosis or stenosis. There is mild aortic regurgitation. Tricuspid Valve The tricuspid valve is normal in structure and function. There is mild tricuspid regurgitation. Pulmonary artery systolic pressure is normal. Pulmonic Valve Structurally normal pulmonic valve. There is no pulmonic regurgitation. Pericardium Normal pericardium without effusion. No pleural effusion. Great Vessels Normal aortic root dimension. The aortic arch and great vessels are well seen and are normal. CONCLUSIONS 1. Normal EF of 70%. 2. Trace mitral regurgitation. 3. Mild tricuspid regurgitation. 4. Mild aortic regurgitation. Adeel Choudhary M.D. (Electronically Signed) Final Date: 21 February 2018 07:34 MEASUREMENTS (Male / Female) Normal Values 2D ECHO LV Diastolic Diameter PLAX 4.3 cm 4.2 - 5.9 / 3.9 - 5.3 cm LV Systolic Diameter PLAX 2.8 cm 2.1 - 4.0 cm LV Fractional Shortening PLAX 34.9 % 25 - 46 % LV Ejection Fraction 2D Teich 64.4 % IVS Diastolic Thickness 1.0 cm LVPW Diastolic Thickness 0.8 cm LV Relative Wall Thickness 0.4 RV Internal Dim ED PLAX 2.8 cm 1.9 - 3.8 cm LVOT Diameter 1.8 cm Aortic Root Diameter 2.5 cm LA Systolic Diameter LX 2.9 cm 3.0 - 4.0 / 2.7 - 3.8 cm Ascending Aorta Diameter 3.1 cm DOPPLER AV Peak Velocity 161.0 cm/s AV Peak Gradient 10.4 mmHg AV Mean Velocity 112.0 cm/s AV Mean Gradient 6.0 mmHg AV Velocity Time Integral 35.1 cm AI Deceleration [place] 173.0 cm/s AI Peak Velocity 467.0 cm/s AI Pressure Half Time 791.0 ms AI Peak Gradient 87.2 mmHg LVOT Peak Velocity 111.0 cm/s LVOT Peak Gradient 4.9 mmHg LVOT Mean Velocity 71.3 cm/s LVOT Mean Gradient 2.0 mmHg LVOT Velocity Time Integral 24.5 cm LVOT Stroke Volume 62.3 cm AV Area Cont Eq vti 1.8 cm AV Area Cont Eq pk 1.8 cm MV Peak Velocity 101.0 cm/s MV Peak Gradient 4.1 mmHg MV Mean Velocity 64.1 cm/s MV Mean Gradient 2.0 mmHg Mitral E Point Velocity 102.0 cm/s Mitral A Point Velocity 76.0 cm/s Mitral E to A Ratio 1.3 MV PHT Velocity 102.0 cm/s MV Deceleration [place] 380.0 cm/s MV Pressure Half Time 80.5 ms MV Area PHT 2.7 cm MV Deceleration Time 208.0 ms TR Peak Velocity 231.0 cm/s TR Peak Gradient 21.3 mmHg Right Atrial Pressure 5.0 mmHg Pulmonary Artery Systolic Pressu 26.3 mmHg Right Ventricular Systolic Press 26.3 mmHg PV Peak Velocity 121.0 cm/s PV Peak Gradient 5.9 mmHg PV Mean Velocity 75.9 cm/s PV Mean Gradient 3.0 mmHg PV Velocity Time Integral 22.4 cm LV E' Lateral Velocity 11.9 cm/s Mitral E to LV E' Lateral Ratio 8.6 LV E' Septal Velocity 10.8 cm/s Mitral E to LV E' Septal Ratio 9.4
--- NOTE | 2018-02-21 07:42 | PN-Observation ---
[place] 02/21/18 0741: Observation Note Observation Note _ I have personally examined GENEVIEVE ALEXIS. her disposition is uncertain at this time. Before a determination can be made, she requires continued observation for the following reasons chest pain and hypertension []. Assessment/Plan Medical Assessment: 38 YO F non smoker with PMH of HTN, fibromyalgia, migraine headache and depression was sent to ED from urgent care clinic for evaluation of chest pain and elevated blood pressure. We are keeping the patient under observation to rule out any ischemic cardiac injury and also monitoring her blood pressure. Problem List: 1. Hypertensive urgency 2. Chest pain Plan: Chest pain: -Considering her symptoms and looks atypical chest pain. We will keep the patient on telemetry floor and do serial EKG and troponins to rule out any ischemic cardiac injury. -Cardiology consult -Echocardiogram. Hypertensive urgency: -Considering patient recently stopped taking propranolol abruptly that can cause her tachycardia and hypertension. -Continue labetalol. -We will continue hydrochlorothiazide. -Amlodipine was discontinued -Renal artery ultrasound is negative for fibromuscular dysplasia. Anxiety: -Alprazolam when necessary History of fibromyalgia: -continue her home medication History of migraine: -Continue Fioricet. DVT prophylaxis: Mechanical and subcutaneous Lovenox CODE STATUS; Full code Subjective Follow-up For: Hypertensive urgency Chest pain Tele-Events Since Last Visit: Sinus rhythm with heart rate 7599 Subjective: Patient had episodes of vomiting yesterday. Patient remained afebrile overnight. Serial examined this morning. She denied any chest pain, short of breath, palpitation, headache, blurry vision, chills, fever, abdominal pain dysuria. Review of Systems Constitutional: Reports: no symptoms. EENTM: Reports: no symptoms. Cardiovascular: Reports: no symptoms. Respiratory: Reports: no symptoms. Gastrointestinal: Reports: no symptoms. Genitourinary: Reports: no symptoms. Musculoskeletal: Reports: no symptoms. Neurological/Psychological: Reports: no symptoms. Objective Last 24 Hrs of Vital Signs/I&O Vital Signs Date Time Temp Pulse Resp B/P B/P Pulse O2 O2 Flow FiO2 Mean Ox Delivery Rate 02/21 0600 98.2 88 18 122/82 99 / 2300 138/88 02/20 2034 100 150/100 02/20 1544 97.9 96 20 124/80 100 04 1042 83 122/70 04 1042 83 122/70 02/20 1039 83 122/70 Intake & Output 02/21 1600 02/21 0800 02/21 0000 Intake Total 120 612 Output Total Balance 120 612 Intake, IV 12 Intake, Oral 120 600 Patient 186 lb Weight Weight Bed scale Measurement Method Physical Exam General Appearance: Alert, Oriented X3, Cooperative Skin: No Rashes Skin Temp/Moisture Exam: Warm/Dry Sepsis Skin Exam (color): Normal for Ethnicity HEENT: Atraumatic, PERRLA, EOMI Neck: Supple Cardiovascular: Normal S1, Normal S2 Lungs: Clear to Auscultation Abdomen: Soft, No Tenderness Neurological: Normal Speech, Strength at 5/5 X4 Ext, Normal Tone Extremities: No Edema Phillip Bailon MD 02/21/18 1141: Addendum Addendum 38F [place] HTN, fibromyalgia, migraine headache and depression admitted with intractable headache and left sided chest pain, found to be in hypertensive urgency 185/124, improved overnight to 122/70 after IV Labetalol. Patient had stopped all her home medications including Propranolol due to insurance issues. She is under stress with the one year anniversary of her father's . She does not have exertional chest pain or dyspnea. EKG is NSR, troponin negative. Much improved, asymptomatic, BP controlled. 1. Hypertensive urgency 2. Chest pain at rest 3. Migraine Plan - Stable for discharge home - Outpatient cardiology - Continue current anti-hypertensive regimen
[2018-02-21 09:13] VITALS: BP 138/80
[2018-02-21] MEDS ORDERED: HYDROCHLOROTH12.5 M3 PO (10:38)
[2018-02-21] MEDS ORDERED: LABETALOL HCL200 M1 PO (10:38)
== END 2018-02-21 11:45 ==
LOC: ERH 09:44 → ERHI 13:15 → 1NO 13:15 → ENRESERV 13:37 → ENTRNSPT 14:04 → EDTRNSPTSTS 14:14 → EDTRNSPT 14:14 → 1NO 14:20 → CMPTRNSPT 14:30 → ENPENDDIS 02-21 09:51 → 1NO 02-21 11:45
PROVIDERS: Physician Assistant; Student in an Organized Health Care Education/Training Program
DX: I16.0 Hypertensive urgency (principal); R07.89 Other chest pain; M79.7 Fibromyalgia; G43.909 Migraine, unspecified, not intractable, without status migrainosus; F32.9 Major depressive disorder, single episode, unspecified; R00.0 Tachycardia, unspecified; F41.9 Anxiety disorder, unspecified
CPT/HCPCS: 36592; 71045; 80307; 81003; 81025; 82436; 93005; 93010; 93306; 96372; 96374; 96375; 99291; G0378; J0131; J1650; J2405; J2550; J3030; J3490